=== PATIENT | female | born 1950 | race Caucasian/White ===

== ENCOUNTER 2018-12-07 15:33 | Emergency (ER) | payer OTHER ==
--- NOTE | 2018-12-07 16:03 | EDM.PDOC ---
ED HPI GENERAL MEDICAL PROBLEM - General Chief Complaint: Lower Extremity Injury/Pain Stated Complaint: FALL,LEFT FOOT INJURY Time Seen by Provider: 12/07/18 16:01 - History of Present Illness INITIAL COMMENTS - FREE TEXT/NARRATIVE: 68-year-old female presents emergency room with a left ankle injury. Early Friday morning approximately 2 AM the patient got up to use the restroom her left leg gave out she tried to catch her self using her left leg and managed to hit the outside of the ankle against the concrete floor she has pain on both the inside and outside of the ankle she's not sure how she twisted her ankle. She has no other injuries from this fall now a little over 36 hours from the time of injury Left Foot Pain Score (Numeric/FACES): 7 - Related Data Allergies Allergy/AdvReac Type Severity Reaction Status Date / Time aspirin Allergy Anaphylactic Verified 12/07/18 15:52 [From Darvon Compound-65] Shock bee pollen Allergy Anaphylactic Verified 12/07/18 15:52 Shock caffeine Allergy Anaphylactic Verified 12/07/18 15:52 [From Darvon Compound-65] Shock cephalexin [From Keflex] Allergy Anaphylactic Verified 12/07/18 15:52 Shock codeine Allergy Anaphylactic Verified 12/07/18 15:52 Shock diazepam [From Valium] Allergy Anaphylactic Verified 12/07/18 15:52 Shock hepatitis B virus vaccine Allergy Anaphylactic Verified 12/07/18 15:52 Shock Penicillins Allergy Anaphylactic Verified 12/07/18 15:52 Shock propoxyphene Allergy Anaphylactic Verified 12/07/18 15:52 [From Darvon Compound-65] Shock Sulfa (Sulfonamide Allergy Anaphylactic Verified 12/07/18 15:52 Antibiotics) Shock Tetanus Vaccines and Toxoid Allergy Anaphylactic Verified 12/07/18 15:52 Shock tetracycline Allergy Itching Verified 12/07/18 15:52 Past Medical History HEENT History: Reports: Impaired Vision Cardiovascular History: Reports: Heart Failure, PVD, Stents [employer]GER History: Reports: Endocrine/Metabolic History: Reports: Diabetes, Type II Social & Family History - Tobacco Use Smoking Status *Q: Current Every Day Smoker Years of Tobacco use: 44 Packs/Tins Daily: 0.1 - Caffeine Use Caffeine Use: Reports: None - Recreational Drug Use Recreational Drug Use: No Review of Systems - Review of Systems Review Of Systems: See Below Constitutional: Reports: No Symptoms Respiratory: Reports: No Symptoms Cardiovascular: Reports: No Symptoms GI/Abdominal: Reports: No Symptoms Genitourinary: Reports: No Symptoms Musculoskeletal: Reports: No Symptoms ED EXAM, GENERAL - Physical Exam Exam: See Below Exam Limited By: No Limitations General Appearance: Alert, No Apparent Distress Respiratory/Chest: No Respiratory Distress, Lungs Clear, Normal Breath Sounds Cardiovascular: Regular Rate, Rhythm, No Edema, No Murmur Extremities: Other (Semination of her left ankle shows significant swelling over the lateral malleolus. No tenderness over the fifth metatarsal. No significant tenderness over the lower leg with palpation) Neurological: Alert, Oriented, Normal Cognition Skin Exam: Intact Course - Vital Signs Last Recorded V/S: Last Vital Signs Temp 36.4 C 12/07/18 15:45 Pulse 87 12/07/18 15:45 Resp 16 12/07/18 15:45 BP 154/80 H 12/07/18 15:45 Pulse Ox 96 12/07/18 15:45 - Orders/Labs/Meds Orders: Active Orders 24 hr Category Date Time Status Durable Medical Equipment for Discharge [DME for Oth 12/07/18 17:49 Ordered Discharge] [COMM] Stat - Re-Assessments/Exams Free Text/Narrative Re-Assessment/Exam: 12/07/18 17:51 Examination shows no acute fracture dislocation she has a looks like an old fracture at the lateral malleolus in this is consistent with her history of fracturing this in the past. I'm concerned that she's got a 3 ligament tear laterally and soft tissue injury of the medial aspect as well as patient will be post in a walking boot unfortunately she cannot use crutches because of shoulder problems. She does not have a local physician she should follow-up with orthopedics next week Departure - Departure Time of Disposition: 17:52 Disposition: Home, Self-Care 01 Clinical Impression: Severe sprain of left ankle - Discharge Information Referrals: PCP,Not In Area [Primary Care Provider] - Forms: ED Department Discharge Additional Instructions: Return to the emergency room with any questions problems or worsening symptoms. Keep your foot elevated as much as she can. Ice to the front of the ankle with the boot in place every couple hours while awake. Do this for the next 4 days Tylenol as needed for discomfort. Follow-up with Dr. Lai today early next week - My Orders Last 24 Hours: My Active Orders 12/07/18 17:49 Durable Medical Equipment for Discharge [DME for Discharge] [COMM] Stat - Assessment/Plan Last 24 Hours: My Active Orders 12/07/18 17:49 Durable Medical Equipment for Discharge [DME for Discharge] [COMM] Stat
--- NOTE | 2018-12-07 16:58 | CR ---
Left tibia and fibula: Two views of the left tibia and fibula were obtained. Comparison: No previous exam. No acute fracture or other bony abnormality is appreciated. Small plantar spur is seen as well as small spur at the attachment of the Achilles tendon to the calcaneus. Impression: 1. Incidental findings. Nothing acute is otherwise seen. Diagnostic code #3
--- NOTE | 2018-12-07 17:19 | CR ---
Left ankle: Two views of the left ankle were obtained. Comparison: No previous study. Bony irregularity off the inferior fibula and medial malleolus has the appearance of old injury. Ankle mortise is symmetric. Mild soft tissue swelling is seen. Plantar spur is noted. Impression: 1. Soft tissue swelling. 2. Findings of old injury. 3. No definite acute bony abnormality is seen. Diagnostic code #2
== END 2018-12-07 18:10 | disposition home or self-care (01) ==
LOC: JD.ED 15:33
DX: S93.402A Sprain of unspecified ligament of left ankle, initial encounter (principal); E11.9 Type 2 diabetes mellitus without complications; F17.210 Nicotine dependence, cigarettes, uncomplicated; Z88.6 Allergy status to analgesic agent; Z91.030 Bee allergy status; Z91.018 Allergy to other foods; Z88.1 Allergy status to other antibiotic agents; Z88.5 Allergy status to narcotic agent; Z88.8 Allergy status to other drugs, medicaments and biological substances; Z88.7 Allergy status to serum and vaccine; Z88.0 Allergy status to penicillin; Z88.2 Allergy status to sulfonamides; Z95.5 Presence of coronary angioplasty implant and graft; W19.XXXA Unspecified fall, initial encounter; Y92.89 Other specified places as the place of occurrence of the external cause; Y93.89 Activity, other specified
CPT/HCPCS: 73590-26-LT; 73590-LT; 73610-26-LT; 73610-LT; 99282; 99283-25